=== PATIENT | male | born 1935 | race Caucasian/White ===

== ENCOUNTER 2023-01-04 21:01 | Inpatient (IN) | payer MEDICARE, OTHER ==
[~2023-01-04] VITALS: Ht 182.9 cm; Wt 97.5 kg
[2023-01-04] MEDS ORDERED: ONDANSETRON HCL/PF 4 MG/2 ML VIAL IV ONE (21:30)
[2023-01-04] MEDS ORDERED: MORPHINE SULFATE INJ 2 MG/ML DISP.SYRIN IV ONE (21:30)
[2023-01-04] MEDS ORDERED: ONDANSETRON HCL/PF 4 MG/2 ML VIAL ONE (21:51)
[2023-01-04] MEDS ORDERED: MORPHINE SULFATE INJ 4 MG/ML DISP.SYRIN ONE (21:51)
--- NOTE | 2023-01-04 21:57 | NUR ---
DIRECTOR OF MEDICAL STAFF SERVICES AT PT'S BEDSIDE
--- NOTE | 2023-01-04 22:06 | NUR ---
PT IN BED 6 A/O X4 TOLORATING ROOM AIR AT 96% O2SAT. C/O ABDOMINAL PAIN 10/[address] DRAINING. CONNECTED TO BEDSIDE MONITOR IN [place] SIDE RAILS UP BED LOCKED IN LOWEST POSTION.
--- NOTE | 2023-01-04 22:10 | NUR ---
18G LAC STARTED BLOOD DRAWN AND SENT TO LAB 20G LEFT HAND.
[2023-01-04 22:32] LABS: BASOPHILS % (AUTO) 0.2 % (0.0-2.0); EOSINOPHILS % (AUTO) 1.5 % (0.0-6.0); HEMATOCRIT 40 % (39-51); HEMOGLOBIN 13.1 g/dL (13.5-17.5); LYMPHOCYTES # (AUTO) 0.6 K/uL (0.8-4.8); LYMPHOCYTES % (AUTO) 5.7 % (20.0-44.0); MEAN CORPUSCULAR HGB CONC 33 g/dl (31.0-36.0); MEAN CORPUSCULAR VOLUME 91 fL (80-96); MONOCYTES # (AUTO) 0.5 K/uL (0.1-1.30); MONOCYTES % (AUTO) 4.6 % (2.0-12.0); NEUTROPHILS # (AUTO) 9.8 K/uL (1.8-8.9); PLATELET COUNT (AUTO) 237 K/uL (150-450); RED BLOOD CELL COUNT(AUTO) 4.35 MIL/uL (4.5-6.0); WHITE BLOOD COUNT (AUTO) 11.1 K/uL (4.3-11.0)
--- NOTE | 2023-01-04 22:43 | NUR ---
TO CT ACCOMPANIED BY TECH
[2023-01-04 22:48] LABS: CALCIUM, SERUM 9.8 mg/dL (8.5-10.1); CARBON DIOXIDE 28 mmol/L (21-32); CHLORIDE 102 mmol/L (98-107); CREATININE 1.7 mg/dL (0.6-1.3); GLUCOSE 201 mg/dL (74-106); SODIUM SERUM 135 mmol/L (136-145); UREA NITROGEN, BLOOD 26 mg/dL (7-18)
--- NOTE | 2023-01-04 22:53 | NUR ---
PT RETURNED TO ER BED [address]
[2023-01-04 23:01] LABS: ALANINE AMINOTRANSFERASE 22 U/L (12-78); ALKALINE PHOSPHATASE 76 U/L (46-116); ASPARTATE AMINOTRANSFERASE 17 U/L (15-37); BILIRUBIN,DIRECT 0.2 mg/dL (0.0-0.2); BILIRUBIN,TOTAL 0.6 mg/dL (0.2-1.0); LIPASE 106 U/L (73-393); TOTAL PROTEIN, SERUM 6.9 g/dL (6.4-8.2)
[2023-01-04] MEDS ORDERED: FLAGYL/NS RTU 500 MG/100 ML PIGGYBACK IV ONE (23:30)
[2023-01-04] MEDS ORDERED: CIPROFLOXACIN IV RTU 400 MG in PREMIX 1 EA IV SCH (23:30)
[2023-01-04] MEDS ORDERED: METRONIDAZOLE 500MG/ NS 100ML 100 ML IV ONE (23:38)
[2023-01-05] MEDS ORDERED: ONDANSETRON HCL/PF 4 MG/2 ML VIAL IVP PRN
[2023-01-05] MEDS ORDERED: Z GUARD REMEDY 4 OZ OINT TP PRN
[2023-01-05] MEDS ORDERED: LORAZEPAM INJ 2 MG/ML VIAL IV PRN
[2023-01-05] MEDS ORDERED: CIPROFLOXACIN IV RTU 200 ML IV ONE (00:09)
--- NOTE | 2023-01-05 00:35 | NUR ---
COVID ANTIGEN SWAB COLLECTED AND SENT TO LAB
--- NOTE | 2023-01-05 00:35 | NUR ---
COVID SWAB COLLECTED AND SENT TO LAB
[2023-01-05] MEDS: IV NS 0.9% 1,000 ML IV PRN (00:39)
--- NOTE | 2023-01-05 00:55 | NUR ---
RN NOTES JESSEE CHARLES FROM ER CALLED AND GAVE REPORT AT 0052 AM.
--- NOTE | 2023-01-05 00:57 | NUR ---
REPORT GIVEN TO MELVIN REYES
[2023-01-05 01:44] VITALS: BP 147/73
--- NOTE | 2023-01-05 01:45 | NUR ---
MS RN NOTES RECEIVED PATIENT FROM ER VIA WHEELCHAIR AT 0145 AM. PATIENT IS A/O TIMES 4. NO PAIN NOTED. NO SOB NOTED. NO DISTRESS NOTED. ABLE TO MAKE NEEDS KNOWN. ON ROOM AIR AND TOLERATING WELL. IV ACCESS NOTED ON THE RIGHT AC G # 18 INTACT AND PATENT . RUNNING NS AT 75 ML/HR. LEFT HAND IV ACCESS G # 20 INTACT AND PATENT. ALL NEEDS ATTENDED. PATIENT AMBULATORY. PATIOENT HAS RIGHT SIDE BILIARY DRAINAGE BAG. RIGHT SIDE OF THE ABDOMEN SURGERY PHOTO TAKEN IN THE CHART. NOTED RIGHT ANTERIOR FOREARM DISCOLORATION. PHOTO TAKEN IN THE CHART. WILL MONITOR FOR SKIN MANAGEMENT. ALL THE BELONGINGS ACCOUNTED AND SIGNED FOR. PATIENT IS NPO FOR POSSIBLE SURGERY. ALL SAFETY MEASURES IN PLACE. BED LOCKED IN THE LOWEST POSITION. CALL LIGHT AND TABLE IN EASY REACH. SIDE RAILS UP TIMES 2. BED ALARM ON. WILL CONTINUE TO MONITOR CLOSELY.
[2023-01-05] MEDS ORDERED: ZOSYN IVPB 3.375 G in IV D5W 50ml IV ONE (02:00)
[2023-01-05] MEDS ORDERED: PIPERACILLIN /TAZOBACTAM 3.375 G VIAL IV ONE (02:22)
[2023-01-05] MEDS: MORPHINE SULFATE INJ 2 MG/ML DISP.SYRIN IV PRN (03:56)
--- NOTE | 2023-01-05 03:56 | NUR ---
RN NOTES PATIENT COMPLAINS OF 8/10 RIGHT GROIN PAIN. PRN MORPHINE 4 MG GIVEN FOR PAIN PER MD ORDER. WILL REASSESS PAIN IN 30 MIN.
[2023-01-05] MEDS ORDERED: PIPERACILLIN /TAZOBACTAM 3.375 G in IV D5W 50 ML IV SCH (05:00)
[2023-01-05 05:51] LABS: BASOPHILS % (AUTO) 0.2 % (0.0-2.0); EOSINOPHILS % (AUTO) 0.4 % (0.0-6.0); HEMATOCRIT 36 % (39-51); HEMOGLOBIN 12.2 g/dL (13.5-17.5); LYMPHOCYTES # (AUTO) 0.7 K/uL (0.8-4.8); LYMPHOCYTES % (AUTO) 6.3 % (20.0-44.0); MEAN CORPUSCULAR HGB CONC 35 g/dl (31.0-36.0); MEAN CORPUSCULAR VOLUME 91 fL (80-96); MONOCYTES # (AUTO) 0.6 K/uL (0.1-1.30); MONOCYTES % (AUTO) 6.1 % (2.0-12.0); NEUTROPHILS # (AUTO) 9.3 K/uL (1.8-8.9); PLATELET COUNT (AUTO) 240 K/uL (150-450); WHITE BLOOD COUNT (AUTO) 10.6 K/uL (4.3-11.0)
[2023-01-05 06:11] LABS: CALCIUM, SERUM 9.3 mg/dL (8.5-10.1); CARBON DIOXIDE 27 mmol/L (21-32); CHLORIDE 104 mmol/L (98-107); CREATININE 1.7 mg/dL (0.6-1.3); GLUCOSE 138 mg/dL (74-106); MAGNESIUM 2.2 mg/dL (1.8-2.4); PHOSPHORUS 3.5 mg/dL (2.5-4.9); POTASSIUM 4.8 mmol/L (3.5-5.1); SODIUM SERUM 137 mmol/L (136-145); UREA NITROGEN, BLOOD 25 mg/dL (7-18)
[2023-01-05 06:21] LABS: CHOLESTEROL 67 mg/dL (<200); HDL CHOLESTEROL 34 mg/dL (40-60); LDL 34 mg/dL (0-99); THYROID STIMULATING HORMONE 3.178 uIU/mL (0.358-3.74); TRIGLYCERIDES 60 mg/dL (30-150)
--- NOTE | 2023-01-05 06:33 | NUR ---
MS RN CLOSING NOTES PATIENT RESTING ON HIS BED.PATIENT IS A/O TIMES 4. NO PAIN NOTED. NO SOB NOTED. NO DISTRESS NOTED. ABLE TO MAKE NEEDS KNOWN. ON ROOM AIR AND TOLERATING WELL. IV ACCESS NOTED ON THE RIGHT AC G # 18 INTACT AND PATENT . RUNNING NS AT 75 ML/HR. LEFT HAND IV ACCESS G # 20 INTACT AND PATENT. ALL NEEDS ATTENDED. PATIENT AMBULATORY. PATIENT HAS RIGHT SIDE BILIARY DRAINAGE BAG. IT IS DRAINING GREEN COLOR BILE. OUTPUT NOTED 250 ML. PATIENT IS NPO FOR POSSIBLE SURGERY. ALL DUE MEDS GIVEN ORDERED. ALL SAFETY MEASURES IN PLACE. BED LOCKED IN THE LOWEST POSITION. CALL LIGHT AND TABLE IN EASY REACH. SIDE RAILS UP TIMES 2. BED ALARM ON. WILL ENDORSE FOR SKIP.
[2023-01-05 08:00] VITALS: BP 151/75
[2023-01-05] MEDS: PANTOPRAZOLE 40 MG VIAL IV SCH (08:08)
[2023-01-05] MEDS: PIPERACILLIN /TAZOBACTAM 3.375 G in IV D5W 100 ML IV SCH ×2 (10:45→18:24)
[2023-01-05] MEDS ORDERED: TRAM50TA2 PO (12:33)
[2023-01-05] MEDS ORDERED: CIPR-262 PO (12:33)
[2023-01-05] MEDS ORDERED: LISI10TA29 PO (12:33)
[2023-01-05] MEDS ORDERED: METO-357 PO (12:33)
[2023-01-05] MEDS ORDERED: METR-147 PO (12:33)
[2023-01-05] MEDS ORDERED: NIFE-34 PO (12:33)
[2023-01-05] MEDS ORDERED: CHOL100043 PO (12:33)
[2023-01-05] MEDS ORDERED: ASPI-1420 PO (12:33)
[2023-01-05 16:00] VITALS: BP 152/72
--- NOTE | 2023-01-05 16:34 | NUR ---
DR. COLLIER ORDERED TO ADVANCE PATIENT TO CLEAR LIQUID DIET.
--- NOTE | 2023-01-05 18:18 | NUR ---
END OF SHIFT SUMMARY PATIENT IS A/O X4. AMBULATORY WITH SBA. ABLE TO MAKE NEEDS KNOWN. IV ACCESS ON R AC #18, NS RUNNING AT 75 ML/HR. INDEPENDENT WITH REPOSITIONING. FALL PRECAUTIONS MAINTAINED AT ALL TIMES. PATIENT IS TOLERATING DIET WELL. SAFETY MEASURES MAINTAINED. BED IN LOWEST POSITION, BRAKES LOCKED. SIDE RAILS UP X2. CALL LIGHT WITHIN REACH. WILL ENDORSE CONTINUITY OF CARE TO ONCOMING SHIFT.
--- NOTE | 2023-01-05 19:30 | NUR ---
noc rn opening note received patient in bed, HOB elevated. a/ox4. no s/s of apparent distress in room air. denies pain at this time. Patient has biliary drain present draining bre colored fluid. R.AC #18g running ns @75mls/hr. L.hand #20g on saline lock. safety in place-- bed in lowest, locked position, bed rails up x2, call light within reach. Will continue with the plan of care for patient.
[2023-01-05 20:00] VITALS: BP 135/61
[2023-01-06] MEDS: IV NS 0.9% 1,000 ML IV PRN (02:37)
[2023-01-06] MEDS: PIPERACILLIN /TAZOBACTAM 3.375 G in IV D5W 100 ML IV SCH ×3 (03:24→19:25)
[2023-01-06 05:49] LABS: BASOPHILS % (AUTO) 0.5 % (0.0-2.0); EOSINOPHILS % (AUTO) 4.9 % (0.0-6.0); HEMATOCRIT 36 % (39-51); HEMOGLOBIN 12.1 g/dL (13.5-17.5); LYMPHOCYTES # (AUTO) 0.9 K/uL (0.8-4.8); LYMPHOCYTES % (AUTO) 8.9 % (20.0-44.0); MEAN CORPUSCULAR HGB CONC 33 g/dl (31.0-36.0); MEAN CORPUSCULAR VOLUME 94 fL (80-96); MONOCYTES # (AUTO) 0.7 K/uL (0.1-1.30); MONOCYTES % (AUTO) 6.7 % (2.0-12.0); NEUTROPHILS # (AUTO) 7.8 K/uL (1.8-8.9); PLATELET COUNT (AUTO) 245 K/uL (150-450); RED BLOOD CELL COUNT(AUTO) 3.86 MIL/uL (4.5-6.0); WHITE BLOOD COUNT (AUTO) 9.8 K/uL (4.3-11.0)
[2023-01-06 06:01] LABS: ALANINE AMINOTRANSFERASE 19 U/L (12-78); ALBUMIN 2.5 g/dL (3.4-5.0); ALKALINE PHOSPHATASE 62 U/L (46-116); ASPARTATE AMINOTRANSFERASE 29 U/L (15-37); BILIRUBIN,TOTAL 0.4 mg/dL (0.2-1.0); CARBON DIOXIDE 25 mmol/L (21-32); CHLORIDE 106 mmol/L (98-107); CREATININE 1.7 mg/dL (0.6-1.3); GLUCOSE 132 mg/dL (74-106); PHOSPHORUS 2.9 mg/dL (2.5-4.9); POTASSIUM 4.4 mmol/L (3.5-5.1); SODIUM SERUM 138 mmol/L (136-145); TOTAL PROTEIN, SERUM 5.9 g/dL (6.4-8.2); UREA NITROGEN, BLOOD 21 mg/dL (7-18)
--- NOTE | 2023-01-06 06:57 | NUR ---
noc rn closing Patient in bed with eyes closed, easy to arouse. no s/s of apparent distress on room air. denies pain. IV Zosyn still running at this time @25mls/hr. Per patient he tolerated the clear liquid diet with no N/V. Advanced diet to full liquids as ordered. Biliary drain emptied 300ml. all needs attended. all scheduled meds admistered. safety kept in place the whole shift. will endorse to morning shift rn for continuity of patient care.
[2023-01-06 07:00] VITALS: BP 143/73
--- NOTE | 2023-01-06 07:48 | NUR ---
MS RN OPENING NOTES received patient awake in bed, HOB elevated. a/ox4. no s/s of apparent distress in room air. denies pain at this time. Patient has biliary drain present draining bre colored fluid. R.AC #18g running ns @75mls/hr. L.hand #20g on saline lock. safety in place-- bed in lowest, locked position, bed rails up x2, call light within reach. Will continue with the plan of care for patient.
[2023-01-06] MEDS: PANTOPRAZOLE 40 MG VIAL IV SCH (08:41)
[2023-01-06] MEDS ORDERED: METR-147 PO (11:32)
[2023-01-06] MEDS ORDERED: CIPR-262 PO (11:32)
[2023-01-06 16:00] VITALS: BP 143/75
--- NOTE | 2023-01-06 18:41 | NUR ---
MS RN CLOSING NOTES patient awake in bed, HOB elevated. a/ox4. no s/s of apparent distress in room air. denies pain at this time. Patient has biliary drain present draining bre colored fluid. R.AC #18g running ns @75mls/hr. L.hand #20g on saline lock. safety in place-- bed in lowest, locked position, bed rails up x2, call light within reach. Will endorse to slot shift manager nurse for helene.
--- NOTE | 2023-01-06 19:30 | NUR ---
noc rn opening note received patient in bed, HOB elevated. a/ox4. no s/s of apparent distress in room air. no c/o pain at this time. Patient has biliary drain present draining bre colored fluid. R.AC #18g running ns @75mls/hr. L.hand #20g on saline lock. safety in place-- bed in lowest, locked position, bed rails up x2, call light within reach. Will continue with the plan of care for patient.
[2023-01-06 20:00] VITALS: BP 188/63
[2023-01-06] MEDS: MORPHINE SULFATE INJ 2 MG/ML DISP.SYRIN IV PRN (20:25)
--- NOTE | 2023-01-06 20:28 | NUR ---
noc rn note patient c/o 10/10 pain/discomfort on his right groin. with facial grimacing and V/S changes. Given morphine 4mg as ordered PRN. will re-assess.
[2023-01-06 21:00] VITALS: BP 157/68
[2023-01-06] MEDS ORDERED: ZOLPIDEM TARTRATE 5 MG TABLET PO PRN (22:30)
--- NOTE | 2023-01-06 22:31 | NUR ---
noc rn note patient requested for sleeping medication. Messaged hospitalist Dominick Baxter. Dominick ordered Ambien 5mg PO HS PRN. Order carried out.
[2023-01-07] MEDS: PIPERACILLIN /TAZOBACTAM 3.375 G in IV D5W 100 ML IV SCH ×2 (03:26→11:45)
[2023-01-07 06:02] LABS: BASOPHILS % (AUTO) 0.4 % (0.0-2.0); EOSINOPHILS % (AUTO) 3.1 % (0.0-6.0); HEMATOCRIT 35 % (39-51); HEMOGLOBIN 9.6 g/dL (13.5-17.5); LYMPHOCYTES # (AUTO) 0.5 K/uL (0.8-4.8); LYMPHOCYTES % (AUTO) 7.7 % (20.0-44.0); MEAN CORPUSCULAR HGB CONC 27 g/dl (31.0-36.0); MEAN CORPUSCULAR VOLUME 97 fL (80-96); MONOCYTES # (AUTO) 0.5 K/uL (0.1-1.30); MONOCYTES % (AUTO) 7.4 % (2.0-12.0); NEUTROPHILS # (AUTO) 5.8 K/uL (1.8-8.9); NEUTROPHILS % (AUTO) 81.4 % (43.0-81.0); PLATELET COUNT (AUTO) 153 K/uL (150-450); RED BLOOD CELL COUNT(AUTO) 3.66 MIL/uL (4.5-6.0); WHITE BLOOD COUNT (AUTO) 7.1 K/uL (4.3-11.0)
[2023-01-07 06:43] LABS: CALCIUM, SERUM 9.3 mg/dL (8.5-10.1); CARBON DIOXIDE 22 mmol/L (21-32); CHLORIDE 104 mmol/L (98-107); CREATININE 1.5 mg/dL (0.6-1.3); GLUCOSE 132 mg/dL (74-106); POTASSIUM 3.9 mmol/L (3.5-5.1); SODIUM SERUM 134 mmol/L (136-145); UREA NITROGEN, BLOOD 19 mg/dL (7-18)
--- NOTE | 2023-01-07 07:11 | NUR ---
noc rn closing all needs attended. all scheduled medications administered. no significant change with patient. will endorse to morning shift rn for continuity of care.
[2023-01-07 08:00] VITALS: BP 152/86
[2023-01-07] MEDS ORDERED: PANTOPRAZOLE 40 MG TABLET.DR PO SCH (09:00)
--- NOTE | 2023-01-07 10:51 | NUR ---
WOUND CARE CONSULT: PT PRESENTS WITH LINNETTE DRAIN WHICH WAS EMPTIED BY NURSING STAFF FOR 450cc GREEN DRAINAGE. PT IS CONTINENT AND IS AMBULATORY. RECOMMEND SURGICAL FOLLOW UP.
[2023-01-07] MEDS ORDERED: TRAMADOL HCL 50 MG TABLET PO PRN (15:00)
--- NOTE | 2023-01-07 15:56 | NUR ---
HAZARDOUS WASTE MANAGEMENT SPECIALIST NOTES PT DISCHARGED TO [facility] ([facility]) IN STABLE CONDITION. A/O X4. V/S TAKEN, STABLE AND RECORDED. PT BELONGINGS CHECKED AND RECORDED. RAC G#18 AND LEFT HAND G#20 SL REMOVED, CALLED AND REPORT GIVEN TO CHERELLE REGISTERED NURSE EARLIER. BILIARY BAG DRAINING GREENISH OUTPUT @100ML INTACT AND DRAINING WELL. ARM BAND REMOVED, PATIENT BELONGINGS CHECKED AND RECORDED. PT LEFT UNIT @ 1550 VIA GURNEY ACCOMPANIED BY 2 EMT'S. MD AND CHARGE NURSE AWARE OF DISCHARGE.
[2023-01-07 16:00] VITALS: BP 158/84
--- NOTE | 2023-01-07 17:03 | NUR ---
PHOTO TAKEN AND RECORDED
[2023-01-07] MEDS ORDERED: LISINOPRIL (10MG) 10 MG TABLET PO SCH (22:00)
[2023-01-08] MEDS ORDERED: ASPIRIN EC 81 MG TABLET.DR PO SCH (09:00)
[2023-01-08] MEDS ORDERED: METOPROLOL SUCCINATE 50 MG TAB.SR.24H PO SCH (09:00)
[2023-01-08] MEDS ORDERED: CHOLECALCIFEROL 1,000 UNIT TABLET (VIT D3) PO SCH (09:00)
[2023-01-08] MEDS ORDERED: NIFEDIPINE XL 60 MG TAB.ER.24 PO SCH (09:00)
== END 2023-01-07 16:40 | DRG 391 ==
LOC: ER 21:11 → MED 01-05 00:44
PROVIDERS: ADMIT Nurse Practitioner Acute Care; ATTEND Nurse Practitioner Acute Care
DX: K57.32 Diverticulitis of large intestine without perforation or abscess without bleeding (principal); N17.0 Acute kidney failure with tubular necrosis; E44.0 Moderate protein-calorie malnutrition; J84.9 Interstitial pulmonary disease, unspecified; N18.9 Chronic kidney disease, unspecified; I13.10 Hypertensive heart and chronic kidney disease without heart failure, with stage 1 through stage 4 chronic kidney disease, or unspecified chronic kidney disease; Z93.50 Unspecified cystostomy status; E66.9 Obesity, unspecified; Z68.29 Body mass index [BMI] 29.0-29.9, adult; K80.20 Calculus of gallbladder without cholecystitis without obstruction; I25.10 Atherosclerotic heart disease of native coronary artery without angina pectoris; E88.09 Other disorders of plasma-protein metabolism, not elsewhere classified; E11.22 Type 2 diabetes mellitus with diabetic chronic kidney disease; I08.0 Rheumatic disorders of both mitral and aortic valves
CPT/HCPCS: 36415; 71045-TC; 76705-TC; 80048-TC; 80053-TC; 80061-TC; 80076-TC; 83690-TC; 83735-TC; 84100-TC; 84443-TC; 84484-TC; 85025-TC; 85730-TC; 87081-TC; 93307-TC; A4216; A4223; C9113; G0378; J0744; J2270; J2405; J2543; J7030; J7060